=== PATIENT | female | born 1995 | race Hispanic/Latino ===

== ENCOUNTER 2021-02-07 21:28 | Emergency (ER) | payer SELFPAY ==
[~2021-02-07] VITALS: Ht 162.6 cm; Wt 81.6 kg
[2021-02-07] MEDS ORDERED: FLUOXETINE HCL20 M1 PO (21:51)
== END 2021-02-07 22:05 | disposition home or self-care (01) ==
LOC: ER 21:51
DX: Z76.0 Encounter for issue of repeat prescription (principal); F32.A Depression, unspecified